=== PATIENT | female | born 1980 | race African-American/Black ===

== ENCOUNTER 2023-06-15 09:23 | Emergency (ER) | payer BC, OTHER ==
[2023-06-15 09:36] VITALS: BP 175/100; PULSE 90; RESP 20; TEMP 98; BMI 32.2
[2023-06-15] MEDS ORDERED: DIPHTH,PERTUSS(ACELL),TET 0.5 ML DISP.SYRIN IM ONE (12:00)
== END 2023-06-15 12:30 | disposition home or self-care (01) ==
LOC: JER 09:23
PROC: 0HQ0XZZ Repair Scalp Skin, External Approach (ICD-10-PCS; principal; 2023-06-15)
PROC: 3E0234Z Introduction of Serum, Toxoid and Vaccine into Muscle, Percutaneous Approach (ICD-10-PCS; 2023-06-15)
DX: S01.01XA Laceration without foreign body of scalp, initial encounter (principal); W01.198A Fall on same level from slipping, tripping and stumbling with subsequent striking against other object, initial encounter; Y92.9 Unspecified place or not applicable
CPT/HCPCS: 12002-25; 70450-TC; 90471; 99284-25

== ENCOUNTER 2023-06-16 09:04 | Emergency (ER) | payer OTHER ==
[2023-06-16 09:27] VITALS: BP 178/110; PULSE 98; RESP 20; TEMP 98.7; BMI 35.6
[2023-06-16] MEDS ORDERED: DIPHTH,PERTUSS(ACELL),TET 0.5 ML DISP.SYRIN IM ONE ×2 (10:05→10:51)
== END 2023-06-16 11:10 | disposition home or self-care (01) ==
LOC: JERFT 09:04
PROC: 3E0234Z Introduction of Serum, Toxoid and Vaccine into Muscle, Percutaneous Approach (ICD-10-PCS; principal; 2023-06-16)
DX: Z23 Encounter for immunization (principal)
CPT/HCPCS: 90471; 90715; 99281-25

== ENCOUNTER 2023-06-22 09:06 | Emergency (ER) | payer OTHER ==
[2023-06-22 09:16] VITALS: BP 184/91; PULSE 93; RESP 18; TEMP 99.9; BMI 35.6
== END 2023-06-22 11:54 | disposition home or self-care (01) ==
LOC: JERFT 09:06
DX: Z48.02 Encounter for removal of sutures (principal)
CPT/HCPCS: 99281-25